=== PATIENT | male | born 1960 | race American Indian/Alaskan Native ===

== ENCOUNTER 2018-12-27 12:40 | Inpatient (IN) | payer OTHER ==
[2018-12-27] MEDS ORDERED: ASPIRIN PO ONE (12:58)
--- NOTE | 2018-12-27 13:05 | Emergency Department Report ---
ED Chest Pain HPI - General Chief Complaint: Chest Pain Stated Complaint: CHEST PAIN Time Seen by Provider: 12/27/18 13:03 Source: patient Mode of arrival: Ambulatory Limitations: No Limitations - History of Present Illness Initial Comments: This is a 58-year-old male that presents emergent complaints of intermittent chest pain for 3 months. Patient states over last night the chest pain worsened and became more regular and is in his left chest radiating to his back. Patient states he saw his primary care today and was sent here for further evaluation and treatment. Patient's primary care is Dr. Chawla. She states that he also began to have shortness of breath last night. Patient states the chest pain is a 10 out of 10 and is non-reproducible and is radiating to his back. Patient states the pain is better with rest and worse with exertion. Patient states that the pain is worsening. Patient denies fever and chills. Patient denies di aphoresis. Patient denies abdominal pain. Patient has past medical hypertension only. Patient primary care wants the patient to be admitted. MD Complaint: chest pain -: Gradual, Sudden Onset: during rest Pain Location: substernal, left chest Pain Radiation: back Severity: severe Severity scale (0 -10): 10 Quality: sharp Consistency: constant Improves With: rest Worsens With: exertion re: dyspnea. denies: nausea, vomting, diaphoresis, sense of impending doom Other Symptoms: denies: cough, fever, syncope, rash, acid taste in mouth, leg swelling, palpitations, burping Treatments Prior to Arrival: none Aspirin use within the Past 7 Days: (0) No - Related Data On Oral Contraceptives: No Home Medications Medication Instructions Recorded Confirmed Last Taken Aspirin [Adult Aspirin] 81 mg PO DAILY 12/27/18 12/27/18 12/27/18 Losartan [Cozaar] 50 mg PO QDAY 12/27/18 12/27/18 12/27/18 Multivit-Min/FA/Lycopen/Lutein 1 each PO DAILY 12/27/18 12/27/18 12/27/18 [Men 50 Plus Multivitamin Tab] Tamsulosin [Flomax] 0.4 mg PO QDAY 12/27/18 12/27/18 12/27/18 amLODIPine [Norvasc] 10 mg PO DAILY 12/27/18 12/27/18 12/27/18 Allergies Allergy/AdvReac Type Severity Reaction Status Date / Time No Known Allergies Allergy Unverified 12/27/18 12:58 Heart Score - HEART Score History: Slightly suspicious EKG: Normal Age: 45-65 Risk factors: No known risk factors Troponin: < normal limit HEART Score: 1 ED Review of Systems ROS: Stated complaint: CHEST PAIN Other details as noted in HPI Constitutional: denies: chills, fever Eyes: denies: eye pain, eye discharge, vision change ENT: denies: ear pain, throat pain Respiratory: denies: cough, shortness of breath, wheezing Cardiovascular: chest pain. denies: palpitations Endocrine: no symptoms reported Gastrointestinal: denies: abdominal pain, nausea, diarrhea Genitourinary: denies: urgency, dysuria Musculoskeletal: denies: back pain, joint swelling, arthralgia Skin: denies: rash, lesions Neurological: denies: headache, weakness, paresthesias Psychiatric: denies: anxiety, depression Hematological/Lymphatic: denies: easy bleeding, easy bruising ED Past Medical Hx - Past Medical History Previous Medical History?: Yes Hx Hypertension: Yes - Surgical History Past Surgical History?: No - Family History Family history: no significant - Social History Smoking Status: Never Smoker Substance Use Type: Alcohol - Medications Home Medications: Home Medications Medication Instructions Recorded Confirmed Last Taken Type Aspirin [Adult Aspirin] 81 mg PO DAILY 12/27/18 12/27/18 12/27/18 History Losartan [Cozaar] 50 mg PO QDAY 12/27/18 12/27/18 12/27/18 History Multivit-Min/FA/Lycopen/Lutein 1 each PO DAILY 12/27/18 12/27/18 12/27/18 History [Men 50 Plus Multivitamin Tab] Tamsulosin [Flomax] 0.4 mg PO QDAY 12/27/18 12/27/18 12/27/18 History amLODIPine [Norvasc] 10 mg PO DAILY 12/27/18 12/27/18 12/27/18 History ED Physical Exam - General Limitations: No Limitations General appearance: alert, in no apparent distress - Head Head exam: Present: atraumatic, normocephalic - Eye Eye exam: Present: normal appearance - ENT ENT exam: Present: mucous membranes moist - Neck Neck exam: Present: normal inspection - Respiratory Respiratory exam: Present: normal lung sounds bilaterally. Absent: respiratory distress - Cardiovascular Cardiovascular Exam: Present: regular rate, normal rhythm. Absent: systolic murmur, diastolic murmur, rubs, gallop - GI/Abdominal GI/Abdominal exam: Present: soft, normal bowel sounds - Rectal Rectal exam: Present: deferred - Extremities Exam Extremities exam: Present: normal inspection - Back Exam Back exam: Present: normal inspection - Neurological Exam Neurological exam: Present: alert, oriented X3 - Psychiatric Psychiatric exam: Present: normal affect, normal mood - Skin Skin exam: Present: warm, dry, intact, normal color. Absent: rash ED Course Vital Signs 12/27/18 12/27/18 12:44 16:27 Temperature 98.0 F 98.4 F Pulse Rate 69 70 Respiratory 18 16 Rate Blood Pressure 169/93 Blood Pressure 160/94 [Left] O2 Sat by Pulse 98 98 Oximetry - Reevaluation(s) Reevaluation #1: Discussed results with patient. Patient agrees with plan of care and admission. 12/27/18 14:31 - Consultations Consultation #1: Dr. Chawla consulted. Patient's primary care to admit patient and assume care 12/27/18 14:31 CHULA score - [place] Score Age > 65: (0) No Aspirin use within the Past 7 Days: (0) No 3 or more CAD Risk Factors: (0) No 2 or more Angina events in past 24 hrs: (0) No Known CAD with more than 50% Stenosis: (0) No Elevated Cardiac Markers: (0) No ST Deviation Greater than 0.5mm: (0) No CHULA Score: 0 ED Medical Decision Making - Lab Data Result diagrams: 12/27/18 13:03 12/27/18 13:03 - EKG Data -: EKG Interpreted by [place] EKG shows normal: sinus rhythm, axis, intervals, QRS complexes, ST-T waves Rate: normal - Radiology Data Radiology results: report reviewed CTA CHEST: HISTORY: Chest pain, shortness of breath. COMPARISON: none. TECHNIQUE: Helical CT in 1.25mm intervals following IV contrast. Pulmonary embolus protocol. Sagittal and coronal reformatted images. Rotational MIP images. FINDINGS: Contrast bolus is satisfactory. No pulmonary embolus is identified. Thyroid gland: Normal. Tracheobronchial tree: Normal. Esophagus: Normal. Heart: Normal. Pericardium: Normal. Mediastinum: Normal. Lung Galan: Normal. Pleural Spaces: Normal. Musculoskeletal: Normal. IMPRESSION: No evidence for pulmonary embolus. Unremarkable CT chest with contrast. - Medical Decision Making Patient is 4-year-old male who presents with complaints of chest pain. Patient's primary care sent patient over for further evaluation and treatment. Patient admitted to the primary care service. Initial cardiac workup negative CT negative. Labs unremarkable. - Differential Diagnosis chest pain. ACS. Critical care attestation.: If time is entered above; I have spent that time in minutes in the direct care of this critically ill patient, excluding procedure time. ED Disposition Clinical Impression: Chest pain Qualifiers: Chest pain type: unspecified Qualified Code(s): R07.9 - Chest pain, unspecified Disposition: DC-09 OP ADMIT IP TO THIS HOSP Is pt being admited?: Yes Does the pt Need Aspirin: No Condition: Serious Time of Disposition: 14:33
[2018-12-27 13:38] LABS: Basophils # (Auto) 0.1 K/mm3 (0.0-0.1); Basophils % (Auto) 1.1 % (0.0-1.8); Eosinophils # (Auto) 0.2 K/mm3 (0.0-0.4); Eosinophils % (Auto) 2.6 % (0.0-4.3); Hematocrit 45.2 % (35.5-45.6); Lymphocytes # (Auto) 2.7 K/mm3 (1.2-5.4); Lymphocytes % (Auto) 45.2 % (13.4-35.0); Mean Corpuscular HGB Conc 33 % (32-34); Mean Corpuscular Volume 90 fl (84-94); Monocytes # (Auto) 0.7 K/mm3 (0.0-0.8); Monocytes % (Auto) 11.4 % (0.0-7.3); Platelet Count 220 K/mm3 (140-440); Red Blood Count 5.03 M/mm3 (3.65-5.03); Red Cell Distribution Width 12.9 % (13.2-15.2)
[2018-12-27 13:45] LABS: BUN/Creatinine Ratio 14; Blood Urea Nitrogen 13 mg/dL (9-20); Calcium 9.1 mg/dL (8.4-10.2); Hemolysis Index 14
[2018-12-27] MEDS ORDERED: NACL 0.9% 500 ML ONE ×2 (13:56)
--- NOTE | 2018-12-27 14:12 | Cat Scan Report ---
CTA CHEST: HISTORY: Chest pain, shortness of breath. COMPARISON: none. TECHNIQUE: Helical CT in 1.25mm intervals following IV contrast. Pulmonary embolus protocol. Sagittal and coronal reformatted images. Rotational MIP images. FINDINGS: Contrast bolus is satisfactory. No pulmonary embolus is identified. Thyroid gland: Normal. Tracheobronchial tree: Normal. Esophagus: Normal. Heart: Normal. Pericardium: Normal. Mediastinum: Normal. Lung Galan: Normal. Pleural Spaces: Normal. Musculoskeletal: Normal. IMPRESSION: No evidence for pulmonary embolus. Unremarkable CT chest with contrast.
[2018-12-27 14:44] LABS: Albumin 4.3 g/dL (3.9-5); Bilirubin,Direct 0.2 mg/dL (0-0.2)
[2018-12-27] MEDS ORDERED: TYLENOL PO PRN (17:53)
[2018-12-27] MEDS ORDERED: SODIUM CHLORIDE FLUSH SYRINGE 10 ML IV PRN (17:53)
[2018-12-27] MEDS ORDERED: ZOFRAN IV PRN (17:53)
[2018-12-27] MEDS ORDERED: MORPHINE IV PRN (18:00)
[2018-12-27 19:56] LABS: Basophils # (Auto) 0.1 K/mm3 (0.0-0.1); Basophils % (Auto) 0.8 % (0.0-1.8); Eosinophils # (Auto) 0.2 K/mm3 (0.0-0.4); Eosinophils % (Auto) 2.6 % (0.0-4.3); Hemoglobin 14.7 gm/dl (11.8-15.2); Lymphocytes # (Auto) 3.2 K/mm3 (1.2-5.4); Lymphocytes % (Auto) 46.8 % (13.4-35.0); Mean Corpuscular HGB Conc 33 % (32-34); Mean Corpuscular Volume 91 fl (84-94); Monocytes # (Auto) 0.8 K/mm3 (0.0-0.8); Monocytes % (Auto) 11.7 % (0.0-7.3); Platelet Count 208 K/mm3 (140-440); Red Blood Count 4.86 M/mm3 (3.65-5.03); Red Cell Distribution Width 12.9 % (13.2-15.2)
[2018-12-27 20:08] LABS: Creatine Kinase MB 4.4 ng/mL (0.0-4.0)
[2018-12-27 20:09] LABS: Alanine Aminotransferase 18 units/L (7-56); Albumin 4.2 g/dL (3.9-5); BUN/Creatinine Ratio 12; Blood Urea Nitrogen 11 mg/dL (9-20); Calcium 8.6 mg/dL (8.4-10.2); Hemolysis Index 9
[2018-12-27 20:16] LABS: INR 1.16 (0.87-1.13)
[2018-12-27 20:17] LABS: Partial Thromboplastin Time 25.1 Sec. (24.2-36.6)
[2018-12-27 20:23] LABS: Chol/HDL Ratio 2.05 %
[2018-12-27] MEDS: ASPIRIN PO SCH (21:38)
[2018-12-27] MEDS: SODIUM CHLORIDE FLUSH SYRINGE 10 ML IV SCH (21:45)
--- NOTE | 2018-12-27 22:46 | History and Physical Report ---
History of Present Illness Date of examination: 12/27/18 Date of admission: 12/27/18 14:36 Chief complaint: chest pain History of present illness: Pt is 58-year-old male with hypertension, who came to my office complaining of intermitent left sided chest pain for 3 months. Patient states over last night the chest pain worsened and became more regular radiating to his back. Pt was admitted directely via ED for further evaluation and treatment. Severity was 10 /10, exertional, associated with Shortness of breath and non-reproducible. Patient denies fever and chills, diaphoresis, orthopnea or PND. Patient denies abdominal pain. In the ED, EKG showed ST-segment depression in leads V4-5, with NSR. CTA of the chest was unremarkable. Serial cardiac enzymes were negative. BNP and lipid panel were normal. Had mild hypokalemia with K level of 3.1 and elevated BP noted. Pt was admitted to [facility] for lexiscan test and optimization of BP and correction of potassium. Past History Past Medical History: hypertension Past Surgical History: No surgical history Social history: denies: smoking, alcohol abuse, prescription drug abuse Family history: no significant family history Medications and Allergies Allergies Allergy/AdvReac Type Severity Reaction Status Date / Time No Known Allergies Allergy Unverified 12/27/18 12:58 Home Medications Medication Instructions Recorded Confirmed Last Taken Type Aspirin [Adult Aspirin] 81 mg PO DAILY 12/27/18 12/27/18 12/27/18 History Losartan [Cozaar] 50 mg PO QDAY 12/27/18 12/27/18 12/27/18 History Multivit-Min/FA/Lycopen/Lutein 1 each PO DAILY 12/27/18 12/27/18 12/27/18 History [Men 50 Plus Multivitamin Tab] Tamsulosin [Flomax] 0.4 mg PO QDAY 12/27/18 12/27/18 12/27/18 History amLODIPine [Norvasc] 10 mg PO DAILY 12/27/18 12/27/18 12/27/18 History Active Meds: Active Medications Acetaminophen (Tylenol) 650 mg PO Q4H PRN PRN Reason: Pain MILD(1-3)/Fever >100.5/PASTRANA Aspirin (Aspirin) 325 mg PO QDAY DAWN Last Admin: 12/27/18 21:38 Dose: Not Given Documented by: Morphine Sulfate (Morphine) 2 mg IV Q4H PRN PRN Reason: Pain, Moderate (4-6) Nitroglycerin (Nitro-Bid 2%) 0.5 inch TP BIDNTG [facility]; Protocol Ondansetron HCl (Zofran) 4 mg IV Q8H PRN PRN Reason: Nausea And Vomiting Sodium Chloride (Sodium Chloride Flush Syringe 10 Ml) 10 ml IV BID [facility] Last Admin: 12/27/18 21:45 Dose: 10 ml Documented by: Sodium Chloride (Sodium Chloride Flush Syringe 10 Ml) 10 ml IV PRN PRN PRN Reason: LINE FLUSH Review of Systems Constitutional: no weight loss, no weight gain, no fever, no chills Ears, nose, mouth and throat: no ear pain, no ear discharge, no tinnitis, no decreased hearing, no nose pain Cardiovascular: chest pain, no orthopnea, no palpitations, no edema, no syncope Respiratory: no cough, no cough with sputum, no excessive sputum, no hemoptysis Gastrointestinal: no abdominal pain, no nausea, no vomiting, no diarrhea Genitourinary Male: no dysuria, no hematuria, no flank pain, no discharge Rectal: no pain Musculoskeletal: no neck pain, no shooting arm pain, no arm numbness/tingling Integumentary: no rash, no pruritis, no redness Neurological: no head injury, no transient paralysis, no paralysis Psychiatric: no memory loss, no change in sleep habits, no sleep disturbances Endocrine: no cold intolerance, no heat intolerance, no polyphagia, no excessive thirst, no polydipsia Hematologic/Lymphatic: no easy bruising, no easy bleeding Allergic/Immunologic: no urticaria, no allergic rhinitis Exam - Constitutional Vitals: Temp Pulse Resp BP Pulse Ox 98.3 F 76 18 158/99 95 12/27/18 19:55 12/27/18 20:35 12/27/18 19:55 12/27/18 19:55 12/27/18 19:55 General appearance: Present: no acute distress, mild distress - EENT Eyes: Present: PERRL, EOM intact ENT: hearing intact, clear oral mucosa - Neck Neck: Present: supple, normal ROM - Respiratory Respiratory effort: normal Respiratory: bilateral: CTA - Cardiovascular Heart Sounds: Present: S1 & S2. Absent: rub, click - Extremities Extremities: pulses symmetrical, No edema Peripheral Pulses: within normal limits - Abdominal General gastrointestinal: Present: soft, non-tender, non-distended, normal bowel sounds - Rectal Rectal Exam: deferred - Integumentary Integumentary: Present: clear, warm, dry - Musculoskeletal Musculoskeletal: gait normal, strength equal bilaterally - Psychiatric Psychiatric: appropriate mood/affect, intact judgment & insight - Neurologic Neurologic: CNII-XII intact, moves all extremities Results - Labs CBC & Chem 7: 12/27/18 19:29 12/27/18 19:29 Labs: Abnormal lab results 12/27/18 12/27/18 12/27/18 Range/Units 13:03 19:29 19:29 RDW 12.9 L (13.2-15.2) % Lymph % (Auto) 45.2 H (13.4-35.0) % [place] % (Auto) 11.4 H (0.0-7.3) % Seg Neutrophils % 39.7 L (40.0-70.0) % PT 15.2 H (12.2-14.9) Sec. INR 1.16 H (0.87-1.13) Potassium 3.1 L (3.6-5.0) mmol/L Total Creatine Kinase (55-170) units/L CK-MB (CK-2) (0.0-4.0) ng/mL 12/27/18 12/27/18 Range/Units 19:29 19:29 RDW 12.9 L (13.2-15.2) % Lymph % (Auto) 46.8 H (13.4-35.0) % [place] % (Auto) 11.7 H (0.0-7.3) % Seg Neutrophils % 38.1 L (40.0-70.0) % PT (12.2-14.9) Sec. INR (0.87-1.13) Potassium (3.6-5.0) mmol/L Total Creatine Kinase 375 H (55-170) units/L CK-MB (CK-2) 4.4 H (0.0-4.0) ng/mL Assessment and Plan Pt is 58-year-old male with hypertension, who came to my office complaining of intermitent left sided chest pain for 3 months. Patient states over last night the chest pain worsened and became more regular radiating to his back. Pt was admitted directely via ED for further evaluation and treatment. Severity was 10/10, exertional, associated with Shortness of breath and non-reproducible. Patient denies fever and chills, diaphoresis, orthopnea or PND. Patient denies abdominal pain. In the ED, EKG showed ST-segment depression in leads V4-5, with NSR. CTA of the chest was unremarkable. Serial cardiac enzymes were negative. BNP and lipid panel were normal. Had mild hypokalemia with K level of 3.1 and elevated BP noted. Pt was admitted to [facility] for lexiscan test and optimization of BP and correction of potassium. - Chest pain EKG showed anterioseptal ST- segment changes. Serial Marlene were normal Commence pt on oxygen, NTG, ASA, morphine Lesxiscan stress in Am - Hypokalemia Supplement k level and recheck - Hypertension Optimize control - DVT Ppx with Lovenox and GI with Pepcid - Time spent: 38 mins
[2018-12-27] MEDS ORDERED: K-DUR PO ONE (23:23)
[2018-12-27 23:58] LABS: Creatine Kinase MB 4.2 ng/mL (0.0-4.0)
[2018-12-28] MEDS: NITRO-BID 2% TP SCH ×2 (05:25→13:30)
[2018-12-28 06:25] LABS: Basophils % (Auto) 0.6 % (0.0-1.8); Eosinophils # (Auto) 0.2 K/mm3 (0.0-0.4); Hemoglobin 14.7 gm/dl (11.8-15.2); Lymphocytes % (Auto) 36.4 % (13.4-35.0); Mean Corpuscular HGB Conc 33 % (32-34); Mean Corpuscular Volume 90 fl (84-94); Monocytes # (Auto) 0.6 K/mm3 (0.0-0.8); Monocytes % (Auto) 10.5 % (0.0-7.3); Platelet Count 203 K/mm3 (140-440); Red Blood Count 4.88 M/mm3 (3.65-5.03); Red Cell Distribution Width 13.1 % (13.2-15.2)
[2018-12-28 06:47] LABS: BUN/Creatinine Ratio 15; Blood Urea Nitrogen 12 mg/dL (9-20); Hemolysis Index 9
[2018-12-28] MEDS ORDERED: K-DUR PO ONE (07:00)
[2018-12-28 07:03] LABS: Alanine Aminotransferase 18 units/L (7-56); Albumin 4.2 g/dL (3.9-5)
[2018-12-28] MEDS ORDERED: LEXISCAN IV ONE (08:24)
[2018-12-28] MEDS ORDERED: FLOMAX PO SCH (10:00)
[2018-12-28] MEDS ORDERED: COZAAR PO SCH (10:00)
[2018-12-28] MEDS ORDERED: NORVASC PO SCH (10:00)
[2018-12-28] MEDS: ASPIRIN PO SCH (10:12)
[2018-12-28] MEDS: SODIUM CHLORIDE FLUSH SYRINGE 10 ML IV SCH (10:12)
--- NOTE | 2018-12-28 13:11 | Discharge Summary ---
Providers - Providers Date of Admission: 12/27/18 14:36 Date of discharge: 12/28/18 Attending physician: MARCOS ARRINGTON none Primary care physician: TRINIDAD LEVI Hospitalization Reason for admission: chest pain Condition: Serious Pertinent studies: CTA chest that was normal NLexiscan test that was normal Procedures: none Hospital course: Pt is 58-year-old male with hypertension, who came to my office complaining of intermitent left sided chest pain for 3 months. Patient states over last night the chest pain worsened and became more regular radiating to his back. Pt was admitted directely via ED for further evaluation and treatment. Severity was 10/10, exertional, associated with Shortness of breath and non-reproducible. Patient denies fever and chills, diaphoresis, orthopnea or PND. Patient denies abdominal pain. In the ED, EKG showed ST-segment depression in leads V4-5, with NSR. CTA of the chest was unremarkable. Serial cardiac enzymes were negative. BNP and lipid panel were normal. Had mild hypokalemia with K level of 3.1 and elevated BP noted. Pt was admitted to [facility] for lexiscan test, optimization of BP control and correction of potassium level. On admission pt was commence on oxygen, NTG, ASA and morphine. Hypokalemia was corrected. Lexiscan stress was negative. Pt was discharged to f/u with id in 3-5 days Disposition: DC-01 TO HOME OR SELFCARE Time spent for discharge: 35 mins - Discharge Diagnoses (1) Hypertension Status: Acute (2) Chest pain Status: Acute Qualifiers: Chest pain type: unspecified Qualified Code(s): R07.9 - Chest pain, unspecified Core Measure Documentation - Palliative Care Palliative Care/ Comfort Measures: Not Applicable - Core Measures Any of the following diagnoses?: none Exam - Constitutional Vitals: Temp Pulse Resp BP Pulse Ox 98.2 F 67 18 158/78 91 12/28/18 12:10 12/28/18 12:10 12/28/18 12:10 12/28/18 12:10 12/28/18 04:40 General appearance: Present: no acute distress, well-nourished - EENT Eyes: Present: PERRL ENT: hearing intact, clear oral mucosa - Neck Neck: Present: supple, normal ROM - Respiratory Respiratory effort: normal Respiratory: bilateral: CTA - Cardiovascular Heart Sounds: Present: S1 & S2. Absent: rub, click - Extremities Extremities: pulses symmetrical, No edema Peripheral Pulses: within normal limits - Abdominal General gastrointestinal: Present: soft, non-tender, non-distended, normal bowel sounds - Integumentary Integumentary: Present: clear, warm, dry - Musculoskeletal Musculoskeletal: gait normal, strength equal bilaterally - Psychiatric Psychiatric: appropriate mood/affect, intact judgment & insight - Neurologic Neurologic: CNII-XII intact, moves all extremities Plan Activity: advance as tolerated Weight Bearing Status: Weight Bear as Tolerated Diet: low salt Follow up with: TRINIDAD LEVI MD [Primary Care Provider] - 7 Days MARCOS ARRINGTON MD [Staff Physician] - 7 Days Prescriptions: RX: amLODIPine [Norvasc] 5 mg PO DAILY #30 tablet RX: Aspirin [Adult Aspirin] 81 mg PO DAILY #30 tablet. RX: tiZANidine [Zanaflex] 2 mg PO HS #20 tablet
[2018-12-28 14:17] VITALS: BP 161/94
--- NOTE | 2018-12-28 22:20 | Treadmill Report ---
ORDERING PHYSICIAN: Itz Chawla MD READING PHYSICIAN: Herb Funez M.D. REASON FOR STUDY: For chest pain. IMAGING PROTOCOL: The patient received 10 mCi of Technetium 99m Tetrofosmin for resting image and 28 mCi of Technetium 99m Tetrofosmin for stress imaging. The imaging for the whole procedure was completed 30-90 minutes following the initial injection of Technetium 99m Tetrofosmin. The SPECT imaging in the 180 degree arc was performed in the right anterior oblique projection. Computerized reconstruction of the images was performed for analysis. IMAGING RESULTS: Normal cavity size from stress to rest. Normal distribution of radionuclide in the anterior, inferior, septal, and apical regions. Gated SPECT, EF of 59% with no wall motion abnormality. The patient infused Lexiscan with no EKG changes. SUMMARY: 1. Negative Lexiscan EKG. 2. Normal rest and stress myocardial perfusion scan. No significant stress ischemia. No wall motion abnormality. Gated SPECT, EF 59%. JOB# [id number] NATALYA/JESSICA
== END 2018-12-28 19:48 | disposition home or self-care (01) | DRG 641 ==
LOC: ED 12:40 → 4A 14:36
PROVIDERS: ADMIT Family Medicine; ATTEND Family Medicine
DX: E87.6 Hypokalemia (principal); I10 Essential (primary) hypertension; R07.9 Chest pain, unspecified; Z79.82 Long term (current) use of aspirin
CPT/HCPCS: 36415; 71275; 78452; 80048; 80053; 80061; 80076; 82550; 82553; 83735; 83880; 84484; 85025; 85610; 85730; 93005; 93010; 93017; G0378; A9502; J2785; J7040; Q9967